=== PATIENT | female | born 1995 | race Caucasian/White ===

== ENCOUNTER 2017-10-24 20:53 | Emergency (ER) | payer BC ==
[~2017-10-24] VITALS: Ht 157.5 cm; Wt 49.9 kg
[2017-10-24 21:07] VITALS: BP_SYST 128
[2017-10-24] MEDS ORDERED: birth control PO (21:26)
== END 2017-10-24 22:14 | disposition left against medical advice (07) ==
LOC: SED 20:53
DX: R06.02 Shortness of breath (principal); F41.9 Anxiety disorder, unspecified; Z53.21 Procedure and treatment not carried out due to patient leaving prior to being seen by health care provider